=== PATIENT | female | born 1985 | race Caucasian/White ===

== ENCOUNTER 2016-08-28 07:31 | Emergency (ER) | payer BC ==
[~2016-08-28] VITALS: Ht 160 cm; Wt 47.9 kg
[~2016-08-28 07:31] MED LIST: CYMBALTA60 MG PO; Habitrol,Nicoderm CQ TD; LYRICA25 MG PO; MOTRIN600 MG PO; Percocet 5/325,Endoc PO; TYLENOL REGULA325 MG PO; Theragran-M,Centrum, PO; ULTRAM50 MG PO
[2016-08-28 08:35] LABS: EOSINOPHIL (%) 0.1 % (0-5); HEMATOCRIT 47.2 % (36.0-46.0); IMMATURE GRANULOCYTE (%) 0.6 % (0.0-0.7); IMMATURE GRANULOCYTE COUNT 0.1 K/uL; INSTRUMENT ABS NEUTROPHIL CT 17.4 K/uL; LYMPHOCYTE COUNT 0.5 K/uL (1.0-2.8); MCH 32.7 PG (29.0-34.0); MCHC 33.9 G/DL (30.0-36.0); MCV 96.3 FL (83-99); MEAN PLAT.VOLUME 10.5 uM^3 (9.5-12.4); MONOCYTE (%) 2.6 % (3-12); MONOCYTE COUNT 0.5 K/uL (0-0.8); NEUTROPHIL (%) 93.9 % (45-76); NEUTROPHIL COUNT 17.4 K/uL (1.8-6.4); PLATELET COUNT 309 K/uL (156-360); RBC DIS.WIDTH-CV 12.4 % (11.8-14.6); RBC DIS.WIDTH-SD 44.4 % (39-53); WHITE BLOOD COUNT 18.5 K/uL (4.1-10.2)
[2016-08-28 08:45] LABS: CHLORIDE 109 mEq/L (99-109); POTASSIUM 4.2 mEq/L (3.7-5.4); SODIUM 141 mEq/L (136-147)
[2016-08-28 08:47] LABS: GLUCOSE 141 mg/dL (70-99)
[2016-08-28 08:48] LABS: ANION GAP 10 MEQ/L (2-14)
[2016-08-28 08:49] LABS: TOTAL BILIRUBIN 0.4 mg/dL (0.0-1.0)
[2016-08-28 08:50] LABS: SERUM ETHYL ALCOHOL < 10 mg/dL
[2016-08-28 08:51] LABS: GFR ESTIMATE (CALCULATED) > 59 mL/min/
[2016-08-28 08:52] LABS: ALKALINE PHOSPHATASE 56 IU/L (3-129); DIRECT BILIRUBIN 0.2 mg/dL (0.0-0.3)
[2016-08-28 08:53] LABS: UREA NITROGEN (BUN) 9 mg/dL (9-23)
[2016-08-28 08:54] LABS: SALICYLATE < 5.0 MG/DL (15-30)
[2016-08-28 09:03] LABS: QUANTITATIVE HCG < 4.0 MIU/ML
[2016-08-28 09:57] LABS: ADD MIUA? YES; BILIRUBIN NEGATIVE; BLOOD SMALL; COLOR STRAW ((YELLOW)); GLUCOSE (STRIP) 50; KETONES NEGATIVE; LEUKOCYTES NEGATIVE; NITRITE NEGATIVE; PROTEIN (STRIP) NEGATIVE; SPECIFIC GRAVITY 1.003 (1.000-1.030); UROBILINOGEN 0.2 MG/DL (0.2-1.0)
[2016-08-28 10:44] LABS: BACTERIA NONE SEEN /HPF; EPITHELIAL CELLS RARE /HPF; MUCUS TRACE /LPF; RED BLOOD CELLS 0-5 /HPF (0-5); WHITE BLOOD CELLS 0-5 /HPF (0-5)
[2016-08-28 11:19] VITALS: BP 132/89
[2016-08-28 11:29] LABS: AMPHETAMINE NEGATIVE (500 ng/mL); BARBITURATES NEGATIVE (200 ng/mL); BENZODIAZEPINES NEGATIVE (150 ng/mL); COCAINE NEGATIVE (150 ng/mL); INTERNAL CONTROLS VALID? YES; METHADONE NEGATIVE (200 ng/mL); METHAMPHETAMINE NEGATIVE (500 ng/mL); OPIATES (MORPHINE) NEGATIVE (100 ng/mL); OXYCODONE NEGATIVE (100 ng/mL); PHENCYCLIDINE NEGATIVE (25 ng/mL); PROPOXYPHENE NEGATIVE (300 ng/mL); THC CANNABINOIDS NEGATIVE (50 ng/mL); TRICYCLIC ANTIDEPRESSANTS NEGATIVE (300 ng/mL)
== END 2016-08-28 11:34 | disposition home or self-care (01) ==
LOC: EME 07:31
PROVIDERS: Emergency Medicine
DX: F33.2 Major depressive disorder, recurrent severe without psychotic features (principal); F41.9 Anxiety disorder, unspecified; D72.829 Elevated white blood cell count, unspecified; F43.10 Post-traumatic stress disorder, unspecified; F17.200 Nicotine dependence, unspecified, uncomplicated
CPT/HCPCS: 71020; 80048; 80076; 81003; 84702; 85025; 90839; 93005; 99281; 99284; G0480